=== PATIENT | male | born 1975 ===

== ENCOUNTER 2021-03-22 17:58 | Inpatient (IN) | payer OTHER ==
[2021-03-22] VITALS (123 sets, daily range): BP systolic 77–135; BP diastolic 46–101; PULSE 84; TEMP 98.1; O2SAT 97–100
[~2021-03-22] VITALS: Ht 175.3 cm; Wt 90.0 kg
[2021-03-22] MEDS ORDERED: MINIPRESS 1M1 MG/CAP PO (19:11)
[2021-03-22] MEDS ORDERED: ZOLOFT 100MG100 MG PO (19:12)
[2021-03-22] MEDS ORDERED: DESYREL 50MG50 MG PO (19:13)
--- NOTE | 2021-03-22 19:15 | NUR ---
PT ARRIVED TO ICU 5. TRANSFERRED SELF FROM STRETCHER TO BED. PT RESTLESS AND ANXIOUS. STATES "I DON'T KNOW WHY I'M HERE." AND ASKS IF CAN STAY RELATED TO HIS HX OF PTSD. THIS RN STATED SHE WOULD ASK HOUSE. PRIOR TO ALLOWING THIS RN TO PLACE ON MONITOR, PT ASKED FOR THE HOSPITAL STAY TO BE DESCRIBED. EDUCATED PT ON PLAN AND EQUIPMENT USE. NOTIFIED TIFFANY DÍAZ OF PT ARRIVAL. PT CONTINUES TO BE RESTLESS, TAPPING FINGERS AND LEGS. FRUSTRATED WITH CORDS FROM MONITOR. ARRIVED AND AT BEDSIDE. CALL LIGHT WITHIN REACH.
[2021-03-22] MEDS ORDERED: PRINZIDE 12.5 M1 TA1 PO (19:16)
[2021-03-22 19:46] LABS: PROTHROMBIN TIME 11.5 SECONDS (9.7-12.8)
[2021-03-22 20:06] LABS: TROPONIN-I 0.274 ng/mL (0.00-0.033)
--- NOTE | 2021-03-22 20:45 | NUR ---
HEPARIN GTT ADJUSTED PER PROTOCOL PT WAS ON HEPARIN PRIOR TO ARRIVAL. SEE HEPARIN FLOWSHEET.
[2021-03-22] MEDS ORDERED: NATURE'S BLEND600 M2 PO (21:09)
--- NOTE | 2021-03-22 21:15 | NUR ---
COMPLAINTS OF CHEST "SORENESS" WHEN PUSHED ON MEDIAL CHEST. STATES IT HAS BEEN THIS WAY FOR A WEEK. ALSO COMPLAINS OF INDEGESTION. NOTIFIED JANUSZ ALLEN APRN RECEIEVED TO START PRN NITRO GTT.
--- NOTE | 2021-03-22 22:05 | NUR ---
SBP DECREASED TO 70'S WHILE ON NITRO GTT. PLACED ON HOLD. PT STATES "I DO NOT WANT ANY MORE NITRO." NITRO GTT OFF.
[2021-03-23] VITALS (420 sets, daily range): BP systolic 99–141; BP diastolic 40–89; PULSE 51–82; TEMP 97.7–98.6; O2SAT 95–100
[2021-03-23 06:19] LABS: BASO % 0.6 % (0.0-2.0); EOS # 0.1 K/mm3 (0.0-0.7); EOS % 1.3 % (0-4.0); GRAN # 4.3 K/mm3 (1.4-6.5); HEMATOCRIT 40.7 % (42.0-52.0); HEMOGLOBIN 13.9 g/dl (13.5-18.0); LYMPH # 1.8 K/mm3 (1.2-3.4); LYMPH % 25.8 % (20.0-51.0); MEAN CELL VOLUME 87 fl (80.0-100.0); MEAN CORPUSCULAR HEMOGLOBIN 30 pg (27.0-31.0); MEAN CORPUSCULAR HGB CONC 34 g/dl (33.0-37.0); MEAN PLATELET VOLUME 10.2 fl (7.4-10.4); MONO # 0.7 K/mm3 (0.1-0.6); PLATELET COUNT 202 K/mm3 (130-400); RED BLOOD COUNT 4.67 M/mm3 (4.20-5.60); REDCELL DISTRIBUTION WIDTH-CV 13.1 % (11.5-14.5)
[2021-03-23 06:35] LABS: CALCIUM 8.9 mg/dL (8.4-10.2); CHOLESTEROL RISK RATIO 4.2; CREATININE, serum 0.82 mg/dL (0.72-1.25); POTASSIUM 4.7 mmol/L (3.5-4.5)
[2021-03-23 06:45] LABS: TROPONIN-I 0.26 ng/mL (0.00-0.033)
--- NOTE | 2021-03-23 08:47 | NUR ---
SEE MERGE FOR ALL MEDICATION ADMINISTRATION TIMES, INTRA AND POST SEDATION ASSESSMENTS
--- NOTE | 2021-03-23 09:32 | NUR ---
Initial visit attempt; Physicians, nurses and family were with Chaplain Cosmo left card offering God's blessings and information regarding the availability of spiritual care.
--- NOTE | 2021-03-23 10:09 | NUR ---
Safety Leader met in patient's room, with Marry at bedside. Marry can be reached at [phone]. Most information was obtained from as patient just returned from a procedure and is not quite awake. reports that she and patient live in [place], they have 3 children and patient is retired from [employer]. PCP is Dr. Ovi Martínez at the [facility]. He also gets his prescriptions through the [facility] mail order, without difficulty. states he was fully independent of ADLs and has no DMEs at home, nor does he have oxygen needs. Patient stated that he has no MPOA but would like to complete one. SW will follow up with this when patient is more alert. D/C Plan: Pending test results
--- NOTE | 2021-03-23 22:45 | NUR ---
ALERT AND OX4. TB OFF RT RADIAL SITE. SLIGHT BRUISE AND SWELLING. SOFT NO HEMOTOMA. PM MEDS GIVEN. REF TRAMADOL AND COLACE, REF 01AM TYL WELL. NO SOA, CHEST PAIN OR DIZZY. POC DISCUSSED. SANDWICH BOX PROVIDED. CALL LIGHT WI REACH. NEEDS MET.
[2021-03-24 00:14] VITALS: BP 99/55; PULSE 52; TEMP 98
[2021-03-24 03:58] LABS: BASO % 0.4 % (0.0-2.0); EOS # 0.1 K/mm3 (0.0-0.7); EOS % 0.8 % (0-4.0); GRAN # 4.8 K/mm3 (1.4-6.5); GRAN % 65.5 % (42.2-75.2); HEMATOCRIT 38.9 % (42.0-52.0); LYMPH # 1.7 K/mm3 (1.2-3.4); LYMPH % 22.9 % (20.0-51.0); MEAN CELL VOLUME 89 fl (80.0-100.0); MEAN CORPUSCULAR HEMOGLOBIN 30 pg (27.0-31.0); MEAN CORPUSCULAR HGB CONC 33 g/dl (33.0-37.0); MEAN PLATELET VOLUME 10.8 fl (7.4-10.4); MONO # 0.8 K/mm3 (0.1-0.6); MONO % 10.3 % (1.7-9.3); PLATELET COUNT 182 K/mm3 (130-400); RED BLOOD COUNT 4.39 M/mm3 (4.20-5.60); REDCELL DISTRIBUTION WIDTH-CV 12.9 % (11.5-14.5)
[2021-03-24 04:00] VITALS: BP 117/59; PULSE 62; TEMP 98.4
[2021-03-24 04:07] LABS: CALCIUM 8.8 mg/dL (8.4-10.2); CREATININE, serum 0.8 mg/dL (0.72-1.25); POTASSIUM 4.2 mmol/L (3.5-4.5)
--- NOTE | 2021-03-24 06:05 | NUR ---
RESTED THROUGH THE NIGHT WITHOUT INCIDENT. NEEDS MET. CALL LIGHT WI REACH.
[2021-03-24 08:30] VITALS: BP 111/58; PULSE 82; TEMP 98.5
--- NOTE | 2021-03-24 08:43 | NUR ---
AT [facility] REPORT MR. VARGAS WAS EATING BREAKFAST. HE ASKED WHEN HE WOULD BE ABLE TO GO HOME. MR. VARGAS DID NOT LIKE THE AHA DIET HE WAS GIVEN SEEM IRRITATED TO STILL BE IN THE HOSPITAL.
[2021-03-24] MEDS ORDERED: LIPITOR 80MG80 MG PO (09:57)
[2021-03-24] MEDS ORDERED: BRILINTA90 MG PO (09:57)
[2021-03-24] MEDS ORDERED: LOPRESSOR 225 MG/TAB PO (09:58)
[2021-03-24] MEDS ORDERED: ASPIRIN E.C. 8181 MG PO (10:00)
--- NOTE | 2021-03-24 10:48 | NUR ---
PATIENT LEFT THE ICU WITH . PATIENT WAS EDUCATED ON HIS STAY AND WHY HE WAS HERE. PATIENT LEFT THE ROOM WITH ALL HIS BELONGINGS AND TOLD TO COME BACK IF SYMPTOMS WORSENED.
== END 2021-03-24 11:20 | disposition home or self-care (01) | DRG 247 ==
LOC: ICU 17:58
PROVIDERS: Nurse Practitioner Family; ADMIT Student in an Organized Health Care Education/Training Program
PROC: 02703ZZ Dilation of Coronary Artery, One Artery, Percutaneous Approach (ICD-10-PCS; principal; 2021-03-23)
PROC: 027035Z Dilation of Coronary Artery, One Artery with Two Drug-eluting Intraluminal Devices, Percutaneous Approach (ICD-10-PCS; 2021-03-23)
PROC: 4A023N7 Measurement of Cardiac Sampling and Pressure, Left Heart, Percutaneous Approach (ICD-10-PCS; 2021-03-23)
DX: I21.4 Non-ST elevation (NSTEMI) myocardial infarction (principal); F43.10 Post-traumatic stress disorder, unspecified; F32.9 Major depressive disorder, single episode, unspecified; G47.00 Insomnia, unspecified
CPT/HCPCS: 99223-AI; 99232-AI; 99239; C1725; C1769; C1874; C1887; C9600; G0378; G0379; J0583; J1644; J2250; J3010; J7030